=== PATIENT | male | born 1960 | race Two or more races ===

== ENCOUNTER → 2021-06-29 | Outpatient (CLI) | payer OTHER | LOC: RAD 10:47 | PROVIDERS: ATTEND Orthopaedic Surgery Sports Medicine | DX: Z01.810 Encounter for preprocedural cardiovascular examination (principal); Z01.811 Encounter for preprocedural respiratory examination | CPT/HCPCS: 71046; 93005 ==

== ENCOUNTER 2021-08-05 08:29 | Outpatient (RCR) | payer BC | END 2021-08-22 | LOC: OT 08:29 | PROVIDERS: ATTEND Orthopaedic Surgery Hand Surgery | DX: S52.501D Unspecified fracture of the lower end of right radius, subsequent encounter for closed fracture with routine healing (principal); M25.531 Pain in right wrist; M25.631 Stiffness of right wrist, not elsewhere classified ==